=== PATIENT | male | born 1975 | race African-American/Black ===

== ENCOUNTER 2022-03-18 20:20 | Emergency (ER) | payer BC, SELFPAY ==
[2022-03-18] MEDS ORDERED: Lisinopril 20 MG TAB ONE (20:42)
== END 2022-03-18 20:48 | disposition home or self-care (01) ==
LOC: BURERS 20:20
DX: Z76.0 Encounter for issue of repeat prescription (principal); I10 Essential (primary) hypertension; Z79.899 Other long term (current) drug therapy
CPT/HCPCS: 99283